=== PATIENT | male | born 1960 | race African-American/Black ===

== ENCOUNTER 2019-06-04 16:16 | Emergency (ER) | payer OTHER ==
[~2019-06-04] VITALS: Ht 190.5 cm; Wt 91.0 kg
[2019-06-04] MEDS ORDERED: NITROGLYCERIN 0.4MG TABLET SL SL PRN (17:30)
[2019-06-04] MEDS ORDERED: ASPIRIN 81MG TABLET PO ONE (17:30)
[2019-06-04 17:40] LABS: HEMATOCRIT. 37.6 % (42.0-52.0); HEMOGLOBIN. 12.7 g/dL (14.0-18.0); MEAN CORPUSCULAR HEMOGLOBIN 32.4 pg (28.0-32.0); MEAN CORPUSCULAR VOLUME 95.5 fL (80.0-94.0); MEAN PLATELET VOLUME 8.9 fl (7.4-10.4); PLATELET 190 x1000/uL (130-400); RED BLOOD CELL COUNT 3.94 mill/uL (4.7-6.1); RED CELL DISTRIBUTION WIDTH 12.8 % (11.6-14.6)
[2019-06-04 17:44] LABS: CHLORIDE 102 mEq/L (98-107)
[2019-06-04 17:48] LABS: D-DIMER 4.01 mg/L FEU (<0.50); INR 1.7; PARTIAL THROMBOPLASTIN TIME 46.7 sec (23.4-31.0); PROTHROMBIN TIME 16.7 sec (9.6-11.0)
[2019-06-04 18:09] LABS: PLATELET ESTIMATE NORMAL
[2019-06-04] MEDS ORDERED: SODIUM CHLORIDE 0.9% 1000ML BAG (SEPSIS BOLUS) IV ONE (18:15)
[2019-06-04] MEDS ORDERED: LEVOFLOXACIN 750MG PREMIX 150 ML IV ONE (18:15)
[2019-06-04] MEDS ORDERED: ENOXAPARIN 100MG/ML SYR SUBCUT ONE (20:00)
[2019-06-04 21:04] LABS: CLARITY URINE CLEAR (CLEAR); COLOR URINE ORANGE (YELLOW); KETONES URINE NEGATIVE (NEGATIVE); LEUKOCYTE ESTERASE URINE NEGATIVE (NEGATIVE); NITRITE URINE NEGATIVE (NEGATIVE); OCCULT BLOOD URINE NEGATIVE (NEGATIVE); PROTEIN URINE 1+ (NEGATIVE); SPECIFIC GRAVITY URINE 1.043 (1.005-1.030)
[2019-06-04] MEDS ORDERED: IOHEXOL-350 100 ML BOTTLE ONE (21:09)
[2019-06-04 21:54] VITALS: BP 151/78
== END 2019-06-04 21:32 | disposition short-term general hospital (02) ==
LOC: ER 16:16
DX: I26.99 Other pulmonary embolism without acute cor pulmonale (principal); J18.9 Pneumonia, unspecified organism; I82.511 Chronic embolism and thrombosis of right femoral vein; I82.531 Chronic embolism and thrombosis of right popliteal vein; Z79.01 Long term (current) use of anticoagulants; R16.0 Hepatomegaly, not elsewhere classified; N28.1 Cyst of kidney, acquired; I51.7 Cardiomegaly
CPT/HCPCS: 36415; 71045; 71275; 80053; 81003; 83605; 83880; 84484; 85025; 85379; 85610; 85730; 87040; 87086; 93005; 93970; 96365; 96366; 96372; 99285; J1650; J1956; J7030; Q9967; Z7610